=== PATIENT | female | born 1990 | race Caucasian/White ===

== ENCOUNTER 2018-04-29 04:38 | Inpatient (IN) | payer OTHER ==
[2018-04-29 05:21] VITALS: BMI 31.7
[2018-04-29] MEDS ORDERED: Butorphanol Tartrate 1 MG/ML VIAL SLOW IVP PRN (06:51)
[2018-04-29] MEDS ORDERED: Lidocaine 1% (PF) 30 ML VIAL SC PRN (06:51)
[2018-04-29] MEDS ORDERED: NS / Oxytocin 40 units/1000ml 1,000 ML IV PRN (06:51)
[2018-04-29] MEDS ORDERED: Ondansetron PF 4 MG/2 ML Vial IVP PRN ×4 (06:51→21:47)
[2018-04-29] MEDS ORDERED: HYDROcodone/Acetaminophen 5/325 mg Tablet PO PRN (06:51)
[2018-04-29] MEDS ORDERED: Ibuprofen 800 MG TAB PO PRN (06:51)
[2018-04-29] MEDS ORDERED: Lactated Ringer's 1,000 ML IV SCH (07:00)
[2018-04-29 07:04] LABS: Hemoglobin 11.6 g/dL (12.0-16.0); Mean Corpuscular HGB CONC 33.3 g/dL (32.0-36.0); Mean Corpuscular Hemoglobin 28.2 pg (27.0-31.0); Mean Corpuscular Volume 84.9 fL (78.0-98.0); Mean Platelet Volume 8.2 fL (7.4-10.4); Platelet Count 217 thou/uL (130-400); White Blood Cell (WBC) Count 7.8 thou/uL (4.8-10.8)
[2018-04-29 07:44] LABS: HBSAg Index 0.17 S/CO (0-0.99); Hep B Surf Ag Non-Reactive S/CO (NonReactive); Syphilis Antibody Nonreactive (Nonreactive); Syphilis Antibody Index 0.03 S/CO (<1.00 Non-Reactive)
[2018-04-29] MEDS ORDERED: Fentanyl 4 mcg/Bup 0.1% Cadd 100 ML ONE ×2 (09:48→16:28)
[2018-04-29] MEDS ORDERED: diphenhydrAMINE 50 MG/ML VIAL IVP PRN ×3 (10:24→21:47)
[2018-04-29] MEDS ORDERED: Acetaminophen 325 MG TAB PO PRN (10:24)
[2018-04-29] MEDS ORDERED: Eucerin (Mineral Oil/Petrolatum,White) 30 gm Jar TOP PRN ×2 (10:24→21:47)
[2018-04-29] MEDS ORDERED: Promethazine HCl 25 MG/ML VIAL IM PRN ×3 (10:24→21:47)
[2018-04-29] MEDS ORDERED: Lactated Ringer's 500 ML IV PRN (10:24)
[2018-04-29] MEDS ORDERED: Naloxone HCl 0.4 mg/ml Vial IVP PRN ×6 (10:24→21:47)
[2018-04-29] MEDS ORDERED: ePHEDrine/0.9% NaCl/PF SYRINGE 50 mg/10 ml SLOW IVP PRN (10:24)
[2018-04-29] MEDS ORDERED: Fentanyl 4 mcg/Bupivacaine 0.1% Cassette 100 ML EPIDURAL SCH (10:30)
[2018-04-29] MEDS ORDERED: Communication Order-Pharmacy FS SCH ×3 (10:30→22:00)
[2018-04-29] MEDS ORDERED: Bupivacaine 0.25% 10 ML VIAL ONE (11:11)
[2018-04-29] MEDS: Lactated Ringer's 1,000 ML IV SCH (11:38)
[2018-04-29] MEDS ORDERED: NS w/ Oxytocin 10 units 500 ML ONE (12:42)
[2018-04-29] MEDS ORDERED: Lidocaine 2% MPF 10 ML AMP (For Epidural Use) ONE (15:02)
--- NOTE | 2018-04-29 20:55 | PDOC.LDPN ---
Labor & Delivery Progress Note - Subjective Subjective: comfortable - Objective Vital signs reviewed and normal: yes General: NAD Uterine fundus: non tender Dilation: 5 Effacement: 90% Station: 1+ FHT: category 2, variable decelerations Vander contractions every: 3 Plan: other (failure to change with adeqate mvu for 4 hr. cat 2 strip. will proceed with pirmary cs )
[2018-04-29] MEDS ORDERED: CEFAZOLIN/Water 2 GM/20 ML SYRINGE SLOW IVP SCH (21:00)
[2018-04-29] MEDS ORDERED: Bicitra 30 ML UDCUP PO SCH (21:00)
[2018-04-29] MEDS ORDERED: EPINEPHrine 1 MG/ML AMP ONE (21:00)
[2018-04-29] MEDS ORDERED: Oxytocin 10 UNITS/ML VIAL ONE ×3 (21:00→21:51)
[2018-04-29] MEDS ORDERED: CEFAZOLIN 2 GM/50 ML-DEXTROSE 2 GM in Premix Bag 1 BAG IVPB SCH (21:00)
[2018-04-29] MEDS ORDERED: Lidocaine 2% 10 ML INJ ONE (21:00)
[2018-04-29] MEDS ORDERED: ePHEDrine/0.9% NaCl/PF SYRINGE 50 mg/10 ml ONE (21:00)
[2018-04-29] MEDS ORDERED: Morphine PF 1 MG/ML SYR ONE (21:02)
[2018-04-29] MEDS ORDERED: Meperidine HCl/PF 25 MG/ML VIAL SLOW IVP PRN ×2 (21:39→21:47)
[2018-04-29] MEDS ORDERED: Ketorolac Tromethamine 30 MG/ML VIAL IVP PRN ×2 (21:39→21:47)
[2018-04-29] MEDS ORDERED: Promethazine HCl 25 MG SUPP PR PRN ×2 (21:39→21:47)
[2018-04-29] MEDS ORDERED: Hydrocerin (Eucerin) Cream 120 gm Jar TOP PRN (21:39)
[2018-04-29] MEDS ORDERED: Naloxone HCl 0.4 mg/ml Vial IV PRN ×2 (21:39→21:47)
[2018-04-29] MEDS ORDERED: HYDROmorphone 2 MG/ML VIAL SLOW IVP PRN ×2 (21:39→21:47)
[2018-04-29] MEDS ORDERED: Ondansetron HCl/PF 4 MG/2 ML Vial IVP PRN ×2 (21:39→21:47)
[2018-04-29] MEDS ORDERED: L&D-Morphine 4 MG/ML VIAL SLOW IVP PRN ×2 (21:39→21:47)
[2018-04-29] MEDS ORDERED: Ketorolac Tromethamine 30 MG/ML VIAL IVP SCH ×2 (21:45→22:00)
[2018-04-29] MEDS ORDERED: Ondansetron PF 4 MG/2 ML Vial ONE (21:51)
--- NOTE | 2018-04-29 22:02 | PDOC.OPDEL ---
OB Operative/Delivery Note Delivery Dr/Surgeon: Rey Assist: John Pre-Delivery Diagnosis: arrest of dilation (arrest at 6cm) Procedure/Post Delivery Dx: primary low transverse CS Weeks gestation: 40 - Findings A Sex: female Weight: 7 lb 13.611 oz - 1 min: 8 - 5 min: 9 - Additional Findings/Plan Placenta delivered: spontaneous findings: low transverse hysterotomy without extension, normal uterus, normal tubes, normal ovaries Estimated blood loss: 700ml, QBL pendnig Compilations/Other Findings: none Post delivery plan: routine recovery
--- NOTE | 2018-04-30 02:43 | OP ---
DATE OF PROCEDURE: 04/29/2018 PREOPERATIVE DIAGNOSIS: 40 weeks' gestation presented in labor with failure to progress past 6 cm. POSTOPERATIVE DIAGNOSIS: Status post primary low-transverse section. PROCEDURES PERFORMED: Primary low-transverse section. SURGEON: Asim Le D.O. PRECISION STRUCTURAL METAL FITTER: Gregorio Harrison M.D. ANESTHESIA: Epidural per Hood Camacho M.D. COMPLICATIONS: None. ESTIMATED BLOOD LOSS: 700 mL. QBL: Pending. COMPLICATIONS: None. FINDINGS: 1. Vigorous female , Apgars 8 and 9, weight 3561 g, to nursery. 2. Low-transverse hysterotomy without extension. 3. Normal appearing placenta with 3-vessel cord. 4. Fundus firm after delivery of placenta. 5. Normal appearing uterus, tubes, and ovaries bilaterally. 6. Surgical sites hemostatic. PROCEDURE IN DETAIL: The patient was taken back to the OR with IV fluids running and epidural anesth esia that was previously placed. The patient was placed in dorsal supine position with a left latera l tilt and the abdomen was prepped and draped in normal fashion for section. Surgeons were scrubbed and gowned and gloved. A 2 g of Ancef was given. Anesthesia was tested and found to be britt quate. A Pfannenstiel skin incision was made with the scalpel. The skin incision was carried down t hrough the subcutaneous tissue to the fascia. Once the fascia was reached, it was incised in the mid line and extended superolaterally using curved Lai scissors. Juanis clamps were placed at the super ior border of the fascia, which was sharply and bluntly dissected off the rectus abdominis muscles in both caudad and cephalad directions allowing adequate space for the delivery of the . This wa s completed by repeating the dissection inferiorly at the inferior edge of the fascia. The rectus mu scles were bluntly in the midline. Peritoneum was bluntly and stretched laterall y. An Izaiah O retractor was placed into the abdominal peritoneal cavity for retraction, visualizati on and protection of the wound. A bladder flap was created with the scalpel and a bladder was dissec arleen away from the planned hysterotomy site. A low-transverse hysterotomy was made with the scalpel. The hysterotomy was bluntly entered and stretched using the Nelson maneuver. The infant was then deli brenda through the hysterotomy without difficulty. The nose and mouth were suctioned. The cord was d oubly clamped and cut and the was handed off to special care nurses in attendance. Cord blood was collected. The placenta was delivered. The uterus was exteriorized, massaged to firm, and boby red of clot and debris. Uterus was then returned to the abdominal cavity. Hysterotomy was closed wi th Monocryl suture in a running locked fashion. Hemostasis was noted after closure of the hysterotom y. Hysterotomy was then copiously irrigated and the pericolic gutters were irrigated and suctioned d ry. Hysterotomy was inspected again and no areas of bleeding were noted. The Izaiah O retractor was then removed from the abdominal cavity. The rectus muscles and fascia were inspected, and no areas of bleeding were noted. Rectus fascia was reapproximated with PDS suture from corner to corner. Sub cutaneous tissue was then irrigated and dried. Any small areas of bleeding were controlled with Bovi e cauterization. Subcutaneous layer was reapproximated with 3 interrupted sutures of plain gut. The skin was then reapproximated with 4-0 Monocryl at the subcuticular layer and the skin was dressed wi th Dermabond dressing. After the Dermabond dried, a sterile pressure dressing was applied. The uter us was massaged and again noted to be firm. The patient was then cleaned and taken to the recovery r oom in good condition.
[2018-04-30] MEDS: Lactated Ringer's 1,000 ML IV SCH ×2 (05:32→07:49)
[2018-04-30] MEDS ORDERED: Ondansetron PF 4 MG/2 ML Vial IVP PRN (06:33)
[2018-04-30] MEDS ORDERED: Promethazine HCl 25 MG/ML VIAL IM PRN (06:33)
[2018-04-30] MEDS ORDERED: HYDROcodone/Acetaminophen 5/325 mg Tablet PO PRN (06:33)
[2018-04-30] MEDS ORDERED: NS / Oxytocin 40 units/1000ml 1,000 ML IV SCH (06:33)
[2018-04-30] MEDS ORDERED: Lactated Ringer's 1,000 ML IV SCH (06:33)
[2018-04-30] MEDS ORDERED: diphenhydrAMINE 25 MG CAP PO PRN (06:33)
[2018-04-30] MEDS ORDERED: Lanolin Ointment 7 GM TUBE TOP PRN (06:33)
[2018-04-30] MEDS ORDERED: Adacel (T-DAP) 0.5 ML VIAL IM ONE (06:33)
[2018-04-30] MEDS ORDERED: Meperidine HCl/PF 25 MG/ML VIAL IM PRN (06:33)
[2018-04-30 07:20] LABS: Hemoglobin 10.1 g/dL (12.0-16.0); Mean Corpuscular HGB CONC 33.2 g/dL (32.0-36.0); Mean Corpuscular Hemoglobin 28.2 pg (27.0-31.0); Mean Corpuscular Volume 85.1 fL (78.0-98.0); Platelet Count 146 thou/uL (130-400); RBC Distribution Width 12.8 % (11.5-14.5); Red Blood Cell (RBC) Count 3.59 mill/uL (4.20-5.40); White Blood Cell (WBC) Count 11.6 thou/uL (4.8-10.8)
[2018-04-30] MEDS: Docusate Calcium (SURFAK) 240 MG CAP PO SCH ×2 (09:22→20:06)
[2018-04-30] MEDS: Simethicone Chewable 80 MG TAB PO PRN ×2 (09:22→20:05)
[2018-04-30] MEDS: Ibuprofen 800 MG TAB PO SCH ×2 (09:22→17:04)
[2018-04-30] MEDS: Prenatal Vitamin 1 TAB PO SCH (09:22)
[2018-04-30] MEDS: HYDROcodone/Acetaminophen 5/325 mg Tablet PO PRN ×3 (09:25→21:17)
--- NOTE | 2018-04-30 11:15 | PDOC.PP ---
Post Progress Note Post Day #: 1 Subjective: doing well, tolerating diet, ambulated to shower PO intake tolerated: yes Flatus: yes Ambulation: yes Vital Signs (12 hours) Temp Pulse Resp BP Pulse Ox 04/30/18 08:20 98.6 F 84 20 101/61 94 L 04/30/18 05:10 98.5 F 77 18 102/57 L 04/30/18 02:30 98.5 F 77 18 102/57 L 04/30/18 01:30 98.3 F 70 18 115/69 04/30/18 00:30 98.3 F 71 20 119/67 95 Weight Weight 168 lb - Physical Examination General: NAD (sitting up in chair to BF baby) Respiratory: non-labored breathing Abdominal: no distention Skin: no rash Neurological: no gross focal deficits Psychiatric: A&Ox3, normal affect Result Diagrams: 04/30/18 07:09 Additional Labs: Post Labs Blood Type A POSITIVE 04/29/18 06:01 Hep Bs Antigen Non-Reactive S/CO (NonReactive) 04/29/18 06:01 (1) Arrest of dilation, delivered, current hospitalization Code(s): O62.1 - SECONDARY UTERINE INERTIA Status: Acute (2) S/P Code(s): Z98.891 - HISTORY OF UTERINE SCAR FROM PREVIOUS SURGERY Status: Acute - Assessment/Plan POD1 doing well sp for arrest @ 6cm, doing well.
[2018-05-01] MEDS: Ibuprofen 800 MG TAB PO SCH ×3 (00:09→15:54)
[2018-05-01] MEDS: Docusate Calcium (SURFAK) 240 MG CAP PO SCH (08:05)
[2018-05-01] MEDS: Prenatal Vitamin 1 TAB PO SCH (08:05)
--- NOTE | 2018-05-01 08:47 | PDOC.PP ---
Post Progress Note Post Day #: 2 Subjective: feeling well, no concerns, latching well, pain controlled w po meds PO intake tolerated: yes Flatus: yes Ambulation: yes Vital Signs (12 hours) Temp Pulse Resp BP Pulse Ox 05/01/18 08:11 98.0 F 84 20 113/67 97 05/01/18 04:55 97.9 F 73 18 102/68 05/01/18 00:00 97.8 F 80 20 99/52 L Weight Weight 168 lb - Physical Examination General: NAD Respiratory: non-labored breathing Abdominal: no distention Fundus firm & at: below umb Extremities: negative homans (B) Skin: CS incision dry & intact, no rash Neurological: no gross focal deficits Psychiatric: A&Ox3, normal affect Result Diagrams: 04/30/18 07:09 Additional Labs: Post Labs Blood Type A POSITIVE 04/29/18 06:01 Hep Bs Antigen Non-Reactive S/CO (NonReactive) 04/29/18 06:01 (1) Arrest of dilation, delivered, current hospitalization Code(s): O62.1 - SECONDARY UTERINE INERTIA Status: Acute (2) S/P Code(s): Z98.891 - HISTORY OF UTERINE SCAR FROM PREVIOUS SURGERY Status: Acute - Assessment/Plan A/P: POD2 doing well, possible DC this PM vs tomorrow.
[2018-05-01 11:55] VITALS: BP 108/75; TEMP 97.9
[2018-05-01] MEDS: HYDROcodone/Acetaminophen 5/325 mg Tablet PO PRN (15:56)
[2018-05-01] MEDS: Simethicone Chewable 80 MG TAB PO PRN (15:56)
== END 2018-05-01 16:40 | disposition home or self-care (01) | DRG 788 ==
LOC: L&D/OP 04:38 → L&D 05:57 → 3SW 04-30 00:48
PROVIDERS: ADMIT Obstetrics & Gynecology; ATTEND Obstetrics & Gynecology
PROC: 10D00Z1 Extraction of Products of Conception, Low, Open Approach (ICD-10-PCS; principal; 2018-04-29)
PROC: 10D00Z1 Extraction of Products of Conception, Low, Open Approach (ICD-10-PCS; 2018-04-29)
PROC: 10907ZC Drainage of Amniotic Fluid, Therapeutic from Products of Conception, Via Natural or Artificial Opening (ICD-10-PCS; 2018-04-29)
DX: O48.0 Post-term pregnancy (principal); Z3A.40 40 weeks gestation of pregnancy; Z37.0 Single live birth; O61.9 Failed induction of labor, unspecified
CPT/HCPCS: 36415; 51702; 85027; 86780; 86850; 86900; 86901; 87340; 99285; J0171; J1885; J2001; J2274; J2405; J2590; S0020

== ENCOUNTER 2020-08-31 08:13 | Outpatient (CLI) | payer OTHER ==
[2020-08-31 17:45] LABS: SARS-CoV-2 PCR by NAA Not Detected (NotDetected)
== END 2020-08-31 08:14 | disposition home or self-care (01) ==
LOC: LABBT 08:13
PROVIDERS: ATTEND Obstetrics & Gynecology
DX: Z01.812 Encounter for preprocedural laboratory examination (principal); Z20.822 Contact with and (suspected) exposure to COVID-19
CPT/HCPCS: 87635; U0003; U0005